=== PATIENT | female | born 2000 | race Caucasian/White ===

== ENCOUNTER 2020-10-06 14:41 | Outpatient (CLI) | payer MEDICAID ==
[2020-10-06 15:30] VITALS: BP 100/60
--- NOTE | 2020-10-06 15:30 | SLEEP CARE CONSULTATION ---
Information from patient questionnaire entered by Christine Johnson. I have reviewed and concur with the information entered by Christine Johnson. This document represents the service I personally performed and the decisions made by me, Frida Ga ARNP. History of Present Illness Service Date and Time: 10/06/2020 1441 Reason for Visit: New patient, Re-[facility] Chief Complaint: reports: Unrefreshed sleep, Excessive daytime sleepiness, Fatigue, Frequent awakenings at night Date of Onset: since May Usual bedtime: depends on the day Time it takes to fall asleep: depends on the day Snores at night: No Observed to quit breathing while asleep: No Sleeps alone due to snoring: No Number of times waking at night: 3-4 Reasons for waking at night: reports: Bathroom, Other (noise, being extremely hot and headaches). denies: Choking, Gasping for air Toss, Turn, or Twitch while sleeping: Yes (depending) Recalls having dreams: Yes (sometimes) Usually gets out of bed at: 11 am - 12pm Feels refreshed in the morning: No Morning headache: Yes (resolved after I take something; daily usually) Sleepy or fatigued during the day: Yes Ever fallen asleep while driving: No Takes day naps: Yes (sometimes; only when really tired, once a month) Dreams during day naps: No Prior sleep studies: No Additional HPI information: I had the pleasure of seeing GAGANDEEP WRIGHT today regarding the possibility of her having a sleep disorder. Her current complaints are fatigue, unrefreshed sleep and frequent night awakenings. She has trouble sleeping. She sometimes has difficulty falling asleep at night. She is getting up later than she normally is used to. She is very tired during the day and wants to sleep during the day. She is falling asleep when watching television. She feels like her energy level and fatigue is getting worse now. It seemed to start when she was working for [employer] and working varied schedules but she says she had difficulty with sleep when she was a teenager too. She denies snoring or pauses in breathing. Her mother has a history of sleep apnea. 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 Patient is Single and lives in [place]. Have you smoked in the past 12 months: No Alcohol use: No Caffeine use: Yes Caffeine amount and frequency: 1 cup once in a while Family History Family history of sleep disordered breathing: Yes Family Hx Sleep Apnea: Mother: Snoring, Sleep apnea - Treated, Sleep apnea - Untreated, Grandparent: Snoring Allergies and Home Medications Drug allergies reviewed: Yes (amoxicillin, potassium clavulanate, latex) Home medication list reviewed: Yes Allergy and home medication list: OTC Allerclear for allergies Ibuprofen prn headaches Review of Systems Cardiovascular: denies: high blood pressure Gastrointestinal: denies: heartburn Neurological: reports: headaches (migraines), fainting or unconsciousness Psychiatric: reports: anxiety Ear/Nose/Throat: reports: tonsillectomy. denies: wisdom teeth removed (her wisdom teeth did not come in) Endocrine: reports: thyroid disease, sluggishness Immunologic: reports: rash, itching, other (eczema) Physical Exam Blood Pressure: 100/60 Cuff size: wrist Heart Rate: 102 O2 Saturation: 97 Height: 5 ft 5 in Weight: 254 lb Body Mass Index: 42.3 BMI Classification: Morbidly Obese Neck circumference: 17 (inches) Mouth and throat: narrow oropharynx Soft palate: long Hard palate: normal Uvula: normal Uvula visualization: 25% Mallampati Class III Tongue: normal in size Tonsils: absent bilaterally Neck: normal w/o lymphadenopathy or thyromegaly Heart: regular rate and rhythm Lungs: clear bilaterally Impression and Plan 1. Suspected Obstructive Sleep Apnea-Hypopnea Syndrome, as suggested by a history of morning headache, frequent awakening during the night, unrefreshed sleep, and excessive daytime sleepiness. Narrow oropharynx and obesity are common predisposing factors for obstructive sleep apnea-hypopnea syndrome. I recommend proceeding to polysomnography to confirm the diagnosis and to assess severity. If the patient has significant sleep disordered breathing, a manual CPAP titration study will also be performed to find the optimal treatment pressure. I informed the patient of what the sleep studies involve and after some discussion, obtained agreement to proceed. The pathophysiology of obstructive sleep apnea-hypopnea syndrome was discussed with the patient and health risks of cardiovascular and cerebrovascular disease if not treated. Risks of drowsy driving discussed in detail and patient advised to avoid long distance driving and to conductor pullman at the first sign of drowsiness. Patient agreed to plan. * Schedule polysomnography +- manual CPAP titration study and return in 1-2 weeks after the study to discuss result and initiate therapy. * Avoid long distance driving or driving when feeling sleepy. * Avoid alcohol, sedative and muscle relaxant around bedtime. * Attempt to lose weight. * Review instructions provided by trained office staff on how to prepare for the sleep study. * Return for follow-up after sleep study completed. Counseling Topics: Weight loss health impact Visit Type: In Office Time Spent with Patient (minutes): 31 Provider Statement: I spent 100% of the Face to Face Visit with the patient with greater than 50% spent counseling the patient and coordination of care.
== END 2020-10-06 14:42 | disposition home or self-care (01) ==
LOC: SC 14:41
PROVIDERS: ATTEND Nurse Practitioner Family
DX: G47.10 Hypersomnia, unspecified (principal); R51.9 Headache, unspecified; G47.8 Other sleep disorders; E66.01 Morbid (severe) obesity due to excess calories; Z68.41 Body mass index [BMI] 40.0-44.9, adult
CPT/HCPCS: 99203; 99212

== ENCOUNTER 2020-10-10 14:00 | Outpatient (CLI) | payer MEDICAID | END 2020-10-10 14:01 | disposition home or self-care (01) | LOC: SC 14:00 | PROVIDERS: ATTEND Nurse Practitioner Family | DX: G47.10 Hypersomnia, unspecified (principal); G47.8 Other sleep disorders; R53.83 Other fatigue; R09.02 Hypoxemia; E66.01 Morbid (severe) obesity due to excess calories; Z68.41 Body mass index [BMI] 40.0-44.9, adult | CPT/HCPCS: 95806 ==

== ENCOUNTER 2020-10-18 09:46 | Outpatient (CLI) | payer MEDICAID ==
--- NOTE | 2020-10-18 10:07 | SLEEP CARE CONSULTATION ---
Information from patient questionnaire entered by Christine Johnson. I have reviewed and concur with the information entered by Christine Johnson. This document represents the service I personally performed and the decisions made by , Frida Ga ARNP. History of Present Illness Service Date and Time: 10/18/2020 0946 Initial [place] Sleepiness Scale score: 12 (in 2020) Current [place] Sleepiness Scale score: 11 Additional HPI information: GAGANDEEP WRIGHT returns for follow up and results of the recently performed home sleep study. The patient was informed of the following findings: no significant sleep disordered breathing with an average AHI 4.3 and pas[place]ale oxygen saturation of 86%. The study was fair due to unreliable pulse oximetry signal during study. I explained the pathophysiology behind obstructive sleep apnea. Patient does not have sleep apnea and was advised how weight gain could increase the risk of developing sleep apnea in the future. I strongly encouraged the patient to lose weight. Patient has moderate snoring. Snoring can be reduced by weight loss. Weight loss is best achieved with diet consult. Patient instructed to contact PCP for referral. Snoring can also be treated with an oral appliance from a dentist. Advised to check insurance coverage. In addition, an ENT evaluation can be do to see if other treatment is indicated. Patient does not drink alcohol. Patient was cautioned about risks of drowsy driving until sleepiness symptoms resolve. Sleep Study - Results Type of Sleep Study: Home sleep study Prior sleep studies: No Polysomnography/Home Sleep Study results: Physician Impression: The quality of the study is fair due to occasionally unreliable pulse oximetry signal. The length of the study is adequate (> 240 minutes). Please also see the tabulated and graphic data. 1. No significant sleep disordered breathing, with an AHI of 4.3/hr and pas[place] SaO2 of 86%. During the study, the patient had 20 apneas (20 obstructive, 0 central, 0 mixed) and 15 hypopneas. The longest episode lasted 30.0 seconds. The few respiratory events occurred independently of body position (supine AHI was 4.5 and non-supine, 4.14). 2. Hypoxemia (ICD-10 R09.02), mild, with the lowest oxygen saturation of 86 % and 33.1 minutes with SaO2 under 90%. Baseline oxygen saturation was normal (Average oxygen saturation was 94%). However, the pulse oximetry signal does not appeared to be too reliable. Allergies and Home Medications Home medication list reviewed: Yes (no changes) Review of Systems Review of systems same as previous: Yes (no changes) Physical Exam Heart Rate: 99 O2 Saturation: 96 Height: 5 ft 5 in Weight: 256 lb Body Mass Index: 42.5 BMI Classification: Morbidly Obese Impression and Plan Snoring but no significant sleep disordered breathing. Patient advised that often weight loss will reduce snoring as well as apnea risk. An oral appliance can also be used for snoring. This would require a dental consultation. Patient cautioned not to use other online appliances as can cause bite issues. A list of accredited dentists in [facility] and one local dentist who makes oral appliances are in the office. Patient is advised to check if insurance will cover. An ENT consult can also be helpful to determine if any other treatment is an option. * Attempt to lose weight * The patient is cautioned about driving until sleepiness is completely resolved. * Return as needed for follow up. Counseling Topics: Weight loss health impact Visit Type: In Office Time Spent with Patient (minutes): 12 Provider Statement: I spent 100% of the Face to Face Visit with the patient with greater than 50% spent counseling the patient and coordination of care.
== END 2020-10-18 09:47 | disposition home or self-care (01) ==
LOC: SC 09:46
PROVIDERS: ATTEND Nurse Practitioner Family
DX: R06.83 Snoring (principal); E66.01 Morbid (severe) obesity due to excess calories; Z68.41 Body mass index [BMI] 40.0-44.9, adult
CPT/HCPCS: 99212

== ENCOUNTER 2022-02-24 13:09 | Outpatient (CLI) | payer MEDICAID | END 2022-02-24 13:10 | disposition short-term general hospital (02) | LOC: EMS 13:09 | DX: M25.561 Pain in right knee (principal); R40.4 Transient alteration of awareness; W18.30XA Fall on same level, unspecified, initial encounter; Y92.000 Kitchen of unspecified non-institutional (private) residence as the place of occurrence of the external cause | CPT/HCPCS: A0425; A0429 ==

== ENCOUNTER 2023-05-27 13:27 | Outpatient (CLI) | payer MEDICAID ==
[2023-05-27 13:39] LABS: BASOPHILS % (AUTO) 0.3 %; EOSINOPHILS % (AUTO) 0.6 %; HCT - HEMATOCRIT 33.3 % (37.0-47.0); HGB - HEMOGLOBIN 11.5 g/dL (12.0-16.0); LYMPHOCYTES # (AUTO) 1.4 10^3/uL (1.5-3.5); LYMPHOCYTES % (AUTO) 44.6 %; MEAN CORPUSCULAR HEMOGLOBIN 37.6 pg (27.0-31.0); MEAN CORPUSCULAR HGB CONC 34.5 g/dL (32.0-36.0); MEAN CORPUSCULAR VOLUME 108.8 fL (81.0-99.0); MEAN PLATELET VOLUME 10.8 fL (7.9-10.8); MONOCYTES # (AUTO) 0.2 10^3/uL (0.0-1.0); MONOCYTES % (AUTO) 5.7 %; NEUTROPHILS # (AUTO) 1.5 10^3/uL (1.5-6.6); NEUTROPHILS % (AUTO) 48.5 %; PLT - PLATELET COUNT 117 10^3/uL (130-450); RED BLOOD COUNT 3.06 10^6/uL (4.20-5.40); RED CELL DISTRIBUTION WIDTH 14.1 % (12.0-15.0); WHITE BLOOD COUNT 3.2 x10^3/uL (4.8-10.8)
== END 2023-05-27 13:28 | disposition home or self-care (01) ==
LOC: LAB 13:27
PROVIDERS: ATTEND Internal Medicine Hematology
DX: D61.818 Other pancytopenia (principal); Q99.9 Chromosomal abnormality, unspecified
CPT/HCPCS: 36415; 85025

== ENCOUNTER 2024-01-15 11:15 | Outpatient (CLI) | payer MEDICAID ==
[2024-01-15 11:29] LABS: BASOPHILS % (AUTO) 0.3 %; EOSINOPHILS % (AUTO) 0.3 %; HCT - HEMATOCRIT 29.2 % (37.0-47.0); LYMPHOCYTES # (AUTO) 1.5 10^3/uL (1.5-3.5); LYMPHOCYTES % (AUTO) 52.7 %; MEAN CORPUSCULAR HGB CONC 34.2 g/dL (32.0-36.0); MEAN CORPUSCULAR VOLUME 108.1 fL (81.0-99.0); MEAN PLATELET VOLUME 9.6 fL (7.9-10.8); MONOCYTES # (AUTO) 0.2 10^3/uL (0.0-1.0); MONOCYTES % (AUTO) 5.1 %; NEUTROPHILS # (AUTO) 1.2 10^3/uL (1.5-6.6); NEUTROPHILS % (AUTO) 41.3 %; PLT - PLATELET COUNT 78 10^3/uL (130-450); RED CELL DISTRIBUTION WIDTH 14.9 % (12.0-15.0); WHITE BLOOD COUNT 2.9 x10^3/uL (4.8-10.8)
[2024-01-15 11:31] LABS: SLIDE REVIEW? Indicated
[2024-01-15 11:52] LABS: PLATELET ESTIMATE, MANUAL DECREASED (<130,000) (NORMAL); PLATELET MORPHOLOGY NORMAL APPEARANCE (NORMAL); RBC MORPHOLOGY (MULTIPLE) 1+ MACROCYTOSIS (NORMAL)
== END 2024-01-15 11:16 | disposition home or self-care (01) ==
LOC: LAB 11:15
PROVIDERS: ATTEND Internal Medicine Hematology
DX: Q82.8 Other specified congenital malformations of skin (principal)
CPT/HCPCS: 36415; 85025